=== PATIENT | male | born 1950 | race Caucasian/White ===

== ENCOUNTER 2017-10-20 05:18 | Inpatient (IN) | payer MEDICARE, OTHER ==
[~2017-10-20] VITALS: Ht 165.1 cm; Wt 71.7 kg
[2017-10-20] VITALS (43 sets, daily range): BP systolic 61–158; BP diastolic 35–92
--- NOTE | 2017-10-20 05:18 | NUR ---
To bed 3 a 67 yo male patient from [facility] c/o sob and low bp. Patient is lethargic upon arrival, with nonbreather in place by ems, kept hob elevated. patent airway maintained. placed on cardiac and vs monitoring. Dr Barakat at bedside to evaluate patient. Placed 2 large bore IV's gauges 18 on the lac and rac.
--- NOTE | 2017-10-20 05:20 | NUR ---
RT CALLED FOR INTUBATION
--- NOTE | 2017-10-20 05:27 | NUR ---
medicated patient with 30mg etomidate and 80mg rocuronium per Dr Barakat's verbal order prior to intubation. rt at bedside.
--- NOTE | 2017-10-20 05:28 | NUR ---
patient was intubated at this time by Dr Barakat. patient with ett size 8, 21 at [facility].
--- NOTE | 2017-10-20 05:29 | NUR ---
[facility]; ac, 16, tc 500, fio2 1005, peep 0. patient is satting at 100% at this time. maintained patent airway.
--- NOTE | 2017-10-20 05:30 | NUR ---
placed 16 f og tube on patient, lip at 65. gurgling sounds heard on the epigastric area upon instillation of air. xr at bedside to confirm placement.
--- NOTE | 2017-10-20 05:31 | NUR ---
xr at bedside.
[2017-10-20] MEDS ORDERED: LORAZEPAM INJ 2 MG/ML VIAL ONE (05:37)
[2017-10-20] MEDS ORDERED: ALBUTEROL FS 2.5 MG/3 ML VIAL.NEB ONE (05:40)
--- NOTE | 2017-10-20 05:44 | NUR ---
adjusted ett to [address] Barakat's verbal order. Rt Johnnie at bedside.
[2017-10-20 05:55] LABS: BASOPHILS % (AUTO) 0.1 % (0.0-2.0); EOSINOPHILS % (AUTO) 0.3 % (0.0-6.0); HEMATOCRIT 40 % (39-51); HEMOGLOBIN 13.3 g/dL (13.5-17.5); LYMPHOCYTES # (AUTO) 0.4 /CMM (0.8-4.8); LYMPHOCYTES % (AUTO) 25.9 % (20.0-44.0); MEAN CORPUSCULAR HEMOGLOBIN 31 PG (26.0-33.0); MEAN CORPUSCULAR HGB CONC 33 g/dl (31.0-36.0); MEAN CORPUSCULAR VOLUME 93 fL (80-96); MONOCYTES # (AUTO) 0.1 /CMM (0.1-1.30); MONOCYTES % (AUTO) 5.1 % (2.0-12.0); NEUTROPHILS % (AUTO) 68.6 % (43.0-81.0); PLATELET COUNT (AUTO) 118 /CMM (150-450); RDW COEFFICIENT OF VARIATION 13.8 (11.5-15.0); RED BLOOD CELL COUNT(AUTO) 4.34 MIL/uL (4.5-6.0)
[2017-10-20] MEDS ORDERED: PIPERACILLIN /TAZOBACTAM 3.375 G VIAL IV ONE (05:55)
[2017-10-20] MEDS ORDERED: DEXAMETHASONE SOD PHOSPHATE 10 MG/ML VIAL ONE (05:55)
[2017-10-20] MEDS ORDERED: VANCOMYCIN 1 GM VIAL ONE (05:55)
[2017-10-20] MEDS ORDERED: PIPERACILLIN /TAZOBACTAM 3.375 G in IV D5W 50 ML IV ONE (06:00)
[2017-10-20] MEDS ORDERED: IV NS 0.9% 1,000 ML BAG IV ONE (06:00)
[2017-10-20] MEDS ORDERED: ALBUTEROL FS 2.5 MG/3 ML VIAL.NEB CONTNEB ONE (06:00)
[2017-10-20] MEDS ORDERED: ETOMIDATE 2 MG/ML VIAL IV ONE ×2 (06:00→09:08)
[2017-10-20] MEDS ORDERED: DEXAMETHASONE SOD PHOSPHATE 10 MG/ML VIAL IV ONE (06:00)
[2017-10-20] MEDS ORDERED: VANCOMYCIN 1 GM in IV D5W 250 ML IV ONE (06:00)
[2017-10-20] MEDS ORDERED: IPRATROPIUM NEB FS 0.5 MG/2.5 ML AMPUL.NEB NEB ONE (06:00)
[2017-10-20] MEDS ORDERED: ROCURONIUM BROMIDE 100 MG/10 ML VIAL IV ONE (06:00)
[2017-10-20] MEDS ORDERED: LEVOFLOXACIN 750 MG /D5W 150ML 150 ML IV ONE ×2 (06:00→07:57)
--- NOTE | 2017-10-20 06:00 | NUR ---
selby cath 16f placed aseptically on patient, drained about 100cc yellow urine. urine collected and sent to lab. Addendum: 10/20/17 at 0724 by SHWETHA 14F
[2017-10-20 06:04] LABS: WHITE BLOOD COUNT (AUTO) 1.5 K/uL (4.3-11.0)
[2017-10-20 06:06] LABS: CALCIUM, SERUM 9.7 mg/dL (8.5-10.1); CARBON DIOXIDE 22 mmol/L (21-32); CHLORIDE 104 mmol/L (98-107); CREATININE 3.5 mg/dL (0.6-1.3); GLUCOSE 136 mg/dL (74-106); POTASSIUM 4.4 mmol/L (3.5-5.1); SODIUM SERUM 141 mmol/L (136-145); UREA NITROGEN, BLOOD 61 mg/dL (7-18)
[2017-10-20 06:10] LABS: TROPONIN I < 0.017 ng/mL (0.00-0.056)
--- NOTE | 2017-10-20 06:16 | NUR ---
RT REC PT WITH SOB. INTUBATED PT 8.0 ETT TUBE AT 21CM AT THE LIP CHEST XRAY DONE ADVANCED TUBE 22CM SECURED ETT PER DR VOGT. PLACED ON VENT SETTING AC 500 16 RR 100% O2 WITH CONTINUOS TX. SPUTUM OBTAINED AND SENT TO LAB Addendum: 10/20/17 at 0620 by ALY MARQUES RT Amended: Links added.
[2017-10-20 06:18] LABS: ALANINE AMINOTRANSFERASE 28 U/L (12-78); ALBUMIN 3.9 g/dL (3.4-5.0); ALKALINE PHOSPHATASE 55 U/L (46-116); ASPARTATE AMINOTRANSFERASE 43 U/L (15-37); B-TYPE NATRIURETIC PEPTIDE 2059 PG/ML (0-125); BILIRUBIN,DIRECT 0.4 mg/dL (0.0-0.2); BILIRUBIN,TOTAL 1.8 mg/dL (0.2-1.0); INR 1.03 (0.87-1.13); PROTHROMBIN TIME 10.7 SECS (9.5-12.7); TOTAL PROTEIN, SERUM 7.5 g/dL (6.4-8.2)
[2017-10-20] MEDS ORDERED: PROPOFOL 100 ML IV ONE (06:29)
[2017-10-20] MEDS ORDERED: LORAZEPAM INJ 2 MG/ML VIAL IV ONE (06:30)
[2017-10-20 06:33] LABS: LYMPHOCYTES % (MANUAL) 25 % (16-48); METAMYELOCYTES % 3 % (0-0); MONOCYTES % (MANUAL) 7 % (0-11.0); MYELOCYTES % 1 % (0-0); NEUTROPHILS % (MANUAL) 64 (42-76)
[2017-10-20 06:52] LABS: APPEARANCE,URINE CLOUDY (CLEAR); BILIRUBIN,URINE NEGATIVE (NEGATIVE); BLOOD, URINE NEGATIVE Ery/uL (NEGATIVE); COLOR,URINE YELLOW (YELLOW); KETONES,URINE NEGATIVE (NEGATIVE); LEUKOCYTE ESTERASE ,URINE 2+ (NEGATIVE); NITRITE, URINE NEGATIVE (NEGATIVE); PH,URINE 5.5 (5.0-8.0); PROTEIN,URINE NEGATIVE (NEGATIVE); UGLUCOSE NEGATIVE (NEGATIVE); UROBILINOGEN,URINE 0.2 EU/dL (0.2)
[2017-10-20 06:53] LABS: ABG BASE EXCESS -11.7 mmol/L; ABG PCO2 33.5 mmHg (35.0-45.0); ABG PH 7.251 (7.350-7.450); ABG PO2 320.6 mmHg (75.0-100.0); AaDO2 358.9 mmHg; COHb 0.1 % (0.5-1.5); MetHb 0.7 % (0.0-1.5); O2Hb 98.2 % (94.0-97.0); PEEP,BG 5 cm H2O; SITE, ABG Right Radial; VENT MODE, BG AC 16 600 100% +5; VT, ABG 600 mL
[2017-10-20] MEDS ORDERED: PROPOFOL 100 ML IV PRN (07:00)
[2017-10-20 07:13] LABS: BACTERIA,URINE Many /HPF (None Seen); RBC,URINE 0-2 /HPF (0-2); SQUAMOUS EPITHELIAL CELL,UR Few /HPF (None Seen)
--- NOTE | 2017-10-20 07:29 | NUR ---
PAGED EPIC, DR GODWIN IS UNIVERSAL BRANCH CONSULTANT
[2017-10-20] MEDS ORDERED: DOCU100C36 GT (07:45)
[2017-10-20] MEDS ORDERED: ATOR10TA GT (07:45)
[2017-10-20] MEDS ORDERED: ASCO500T9 GT (07:45)
[2017-10-20] MEDS ORDERED: FENO134C GT (07:45)
[2017-10-20] MEDS ORDERED: POTA20TA83 GT (07:45)
[2017-10-20] MEDS ORDERED: METO25TA6 GT (07:45)
[2017-10-20] MEDS ORDERED: FAMO20TA8 GT (07:45)
[2017-10-20] MEDS ORDERED: SENN-167 GT (07:45)
[2017-10-20] MEDS ORDERED: GABA-534 GT (07:45)
[2017-10-20] MEDS ORDERED: NUT.237L30 GT (07:45)
[2017-10-20] MEDS ORDERED: LACT1CAP61 PO (07:45)
[2017-10-20] MEDS ORDERED: ZINC220T GT (07:45)
--- NOTE | 2017-10-20 08:01 | NUR ---
SANJAY PAGED FOR ADMISSION - TATO -THROUGH THE EXCHANGE
--- NOTE | 2017-10-20 08:08 | NUR ---
accepted by dr. Viera
--- NOTE | 2017-10-20 08:08 | NUR ---
ICU bed assigned - 250 per Soraya Shepard RN Painter Mirror
--- NOTE | 2017-10-20 08:14 | NUR ---
report given to Emelyn SANCHEZ, continue plan of care
--- NOTE | 2017-10-20 08:50 | NUR ---
INSURANCE COLLECTOR: Pt received from ER via gurney, aroused only by deep pain, gag and cough reflex present. ETT 8 secured at 23cm lip line. Copious amounts of thick monson secretions suctioned orally and through ETT. Pt contracted on bilat upper and lower extremities. OGT and PEG positive placement, auscultated, revealed in CXR. Pt noted with SBP in 70's, Dr Viera paged for admitting orders.
[2017-10-20] MEDS ORDERED: NOREPINEPHRINE 8 MG in IV D5W 500 ML IV PRN ×2 (09:00→10:00)
[2017-10-20] MEDS ORDERED: ACETAMINOPHEN 325 MG TABLET PO PRN (09:00)
[2017-10-20] MEDS: DOCUSATE SODIUM 100 MG CAPSULE PO SCH (09:00)
[2017-10-20] MEDS ORDERED: ACETAMINOPHEN 650 MG/SUPP.RECT RC PRN (09:00)
[2017-10-20] MEDS ORDERED: ALBUTEROL FS 2.5 MG/3 ML VIAL.NEB NEB PRN (09:00)
[2017-10-20] MEDS: FAMOTIDINE (20 MG) 20 MG TABLET GT SCH (09:00)
[2017-10-20] MEDS ORDERED: NORMAL SALINE FLUSH 10 ML SYR IV PRN (09:00)
[2017-10-20] MEDS ORDERED: ONDANSETRON HCL/PF 4 MG/2 ML VIAL IVP PRN (09:00)
[2017-10-20] MEDS ORDERED: IV NS 0.9% 1,000 ML IV PRN (09:00)
[2017-10-20] MEDS ORDERED: ROCURONIUM BROMIDE 50 MG/5 ML IV ONE (09:08)
[2017-10-20] MEDS ORDERED: FEE EMEERGENCY 1 MIN EA MC ONE (09:08)
--- NOTE | 2017-10-20 10:00 | NUR ---
ICU/RN: Unable to instrument person to notify on chart, goes straight to voicemail. Left message with call back number. Emergency consent for PICC obtained from Dr Viera.
[2017-10-20] MEDS ORDERED: FEE PK DOSING 1 MIN EA MC ONE (10:08)
[2017-10-20] MEDS: IV NS 0.9% 1,000 ML IV PRN ×2 (10:46→20:42)
[2017-10-20] MEDS: PANTOPRAZOLE 40 MG VIAL IV SCH (11:38)
[2017-10-20] MEDS: PIPERACILLIN /TAZOBACTAM 2.25 G in IV D5W 50 ML IV SCH ×3 (11:39→23:18)
[2017-10-20] MEDS ORDERED: PIPERACILLIN /TAZOBACTAM 4.5 G in IV D5W 50 ML IV SCH (12:00)
[2017-10-20] MEDS ORDERED: VANCOMYCIN 1.25 GM in IV D5W 500 ML IV SCH (13:00)
[2017-10-20] MEDS ORDERED: NORMAL SALINE FLUSH 10 ML SYR IV SCH (13:00)
--- NOTE | 2017-10-20 13:10 | NUR ---
WOUND CARE CONSULT: PT NOT STABLE AT THIS TIME TO TURN FOR SKIN ASSESSMENT. PT ON FIRST STEP MATTRESS. RESPIRATORY THERAPIST WITH PT. ALL SKIN PROTECTION MEASURES IN PLACE AND DISCUSSED WITH NURSING STAFF. MD IN AGREEMENT WITH PLAN OF CARE.
[2017-10-20] MEDS: Z GUARD REMEDY 2 OZ OINT TP SCH (13:28)
[2017-10-20] MEDS: PROPOFOL 100 ML IV PRN ×2 (13:28→20:33)
--- NOTE | 2017-10-20 13:28 | NUR ---
ICU/RN: Pt noted to be gagging, biting and tachypneic. Started on Diprivan drip, will titrate per protocol. Dr Healy aware.
[2017-10-20] MEDS ORDERED: Z GUARD REMEDY 2 OZ OINT TP PRN (13:30)
[2017-10-20 14:21] LABS: ABG BASE EXCESS -11.8 mmol/L; ABG OXYGEN SATURATION 94.8 % (92.0-98.5); ABG PCO2 29.9 mmHg (35.0-45.0); ABG PH 7.276 (7.350-7.450); ABG PO2 79.9 mmHg (75.0-100.0); COHb 0.3 % (0.5-1.5); MetHb 0.6 % (0.0-1.5); O2Hb 93.9 % (94.0-97.0); PEEP,BG 5 cm H2O; SITE, ABG Right Radial; VENT MODE, BG AC 16 500 50% +5; VT, ABG 500 mL
--- NOTE | 2017-10-20 14:30 | NUR ---
ICU/RN: Case dw Dr Healy. Abn labs and CXR reviewed. Current POC is to r/o metastatic disease vs granulomatous disease. Cultures to be sent as ordered. Pt to be placed under respiratory isolation. tool repairer updated.
--- NOTE | 2017-10-20 15:00 | NUR ---
ICU/RN: Pt noted with moderate amount of soft green stool. Z-guard applied to affected area. Pt unable to tolerate turning for extended periods of time with SPO2 dropping to 80's; SBP also labile with turning.
--- NOTE | 2017-10-20 17:00 | NUR ---
ICU/RN: TALHA Hawk in for ID consult. POC dw CASE WORK AIDE. First sample sent to pathology for AFB, cytology testing. Current respiratory isolation precautions continued.
--- NOTE | 2017-10-20 17:10 | NUR ---
TECHNICAL SERVICES REP: F/u with central supply regarding DVT pump; per tech, no pumps available at this time. Will send one up as soon as it is available.
[2017-10-20 18:16] LABS: CREATININE, URINE 80.4 MG/DL (30.0-125.0)
--- NOTE | 2017-10-20 18:47 | NUR ---
ICU/RN: Pt transferred to [facility]; isolation precautions observed.
[2017-10-20] MEDS ORDERED: NOREPINEPHRINE 16 MG in IV D5W 500 ML IV PRN (20:00)
[2017-10-20] MEDS: GABAPENTIN 300 MG CAPSULE GT SCH (20:00)
[2017-10-20] MEDS: ATORVASTATIN 10 MG TABLET GT SCH (20:00)
[2017-10-20] MEDS ORDERED: FILGRASTIM (480 MCG) 480 MCG/1.6 ML VIAL ONE (21:33)
[2017-10-20] MEDS ORDERED: ASPIRIN 300 MG/SUPP.RECT RC ONE (21:59)
--- NOTE | 2017-10-20 22:16 | NUR ---
LATENT FINGERPRINT EXAMINER; NEW MEDICATION 'GRANIX" ORDERED BY DR REED, ONLINE COMMUNICATIONS MANAGER MADE AWARE , PER ONLINE COMMUNICATIONS MANAGER MEDICATION IS NOT AVAILABLE IN [place]. SPOKE WITH DR REED WANTS TO GIVE MEDICATION NOW, DOESN'T WANT WAIT UNTIL MORNING. ONLINE COMMUNICATIONS MANAGER MADE AWARE SAID' WILL CALL PHARMACY...... CHARGE NURSE AWARE
[2017-10-20] MEDS: TBO-FILGRASTIM 480 MCG/0.8 ML ML SQ SCH (22:56)
[2017-10-21] VITALS (79 sets, daily range): BP systolic 49–154; BP diastolic 25–71
[2017-10-21] MEDS ORDERED: PHENYLEPHRINE 10 MG/ML VIAL ONE (01:32)
--- NOTE | 2017-10-21 01:33 | NUR ---
CODER: PT HAVING EPISODES OF SINUS TACHY RATE OF 110-150 NON SUSTAINED THE GO BACK TO NORMAL IN FEW SECONDS, LORRAINE CAMPOS ACNP AT BEDSIDE, 12 LEAD EKG DONE SHOWS AFIB , BUT THEN GO BACK TO HEART RATE 90, BACK AND FORTH SINUS AND AFIB. PER ACNP NO TREATMENT FOR NOW UNLESS SUSTAINED AFIB, KEEP MONITORING. CHANGE TO SOAHIL-SYNEPHRIE FOR PRESSURE SUPPORT, LEVOPHED STOPPED DUE TO HEART RATE.
[2017-10-21] MEDS: PROPOFOL 100 ML IV PRN ×4 (01:38→22:14)
[2017-10-21] MEDS: PHENYLEPHRINE 80 MG in IV D5W 250 ML IV PRN ×4 (01:40→23:56)
--- NOTE | 2017-10-21 01:52 | NUR ---
ASSOCIATE MERCHANDISE PLANNER: RHYTHM CONVERTED TO AFIB WITH RATE OF 90-100, SOMETIMES GO BACK TO SINUS. LEVOPHED STOPPED. SOHAIL-SYNEPHRINE STARTED AT PER PROTOCOL. KEEP MONITORING....
--- NOTE | 2017-10-21 01:56 | NUR ---
REFINERY OPERATOR REFORMING UNIT: PT IS TACHYPNEIC, MOVING. RESTLESS, DIPRIVAN TITRATED UP TO 25 MCG/KG/MIN. KEEP MONITORING...
--- NOTE | 2017-10-21 02:51 | NUR ---
BRIEF WRITER; RHYTHM CONVERTED TO SINUS WITH PACs HEART RATE 80-90, KEEP MONITORING. SOHAIL-SYNEPHRINE TITRATING PE RBP READING.
[2017-10-21] MEDS: PIPERACILLIN /TAZOBACTAM 2.25 G in IV D5W 50 ML IV SCH ×3 (05:06→17:11)
[2017-10-21] MEDS ORDERED: VANCOMYCIN 500 MG in IV D5W 100 ML IV SCH (06:00)
[2017-10-21 06:23] LABS: BASOPHILS % (AUTO) 0.1 % (0.0-2.0); EOSINOPHILS % (AUTO) 0.4 % (0.0-6.0); HEMATOCRIT 35 % (39-51); HEMOGLOBIN 11.8 g/dL (13.5-17.5); LYMPHOCYTES # (AUTO) 0.3 /CMM (0.8-4.8); LYMPHOCYTES % (AUTO) 18.5 % (20.0-44.0); MEAN CORPUSCULAR HEMOGLOBIN 31 PG (26.0-33.0); MEAN CORPUSCULAR HGB CONC 34 g/dl (31.0-36.0); MEAN CORPUSCULAR VOLUME 92 fL (80-96); MONOCYTES % (AUTO) 1.5 % (2.0-12.0); NEUTROPHILS # (AUTO) 1.2 /CMM (1.8-8.9); NEUTROPHILS % (AUTO) 79.5 % (43.0-81.0); PLATELET COUNT (AUTO) 114 /CMM (150-450); RDW COEFFICIENT OF VARIATION 14.3 (11.5-15.0); RED BLOOD CELL COUNT(AUTO) 3.87 MIL/uL (4.5-6.0)
[2017-10-21 06:27] LABS: WHITE BLOOD COUNT (AUTO) 1.5 K/uL (4.3-11.0)
[2017-10-21 06:32] LABS: ALBUMIN 2.2 g/dL (3.4-5.0); BILIRUBIN,TOTAL 1.4 mg/dL (0.2-1.0); CALCIUM, SERUM 8.2 mg/dL (8.5-10.1); MAGNESIUM 1.8 mg/dL (1.8-2.4); PHOSPHORUS 2.4 mg/dL (2.5-4.9); POTASSIUM 4.5 mmol/L (3.5-5.1); TOTAL PROTEIN, SERUM 5.4 g/dL (6.4-8.2)
[2017-10-21 06:38] LABS: THYROID STIMULATING HORMONE 0.955 uIU/mL (0.358-3.74)
[2017-10-21 06:44] LABS: D-DIMER 1.75 mg/L(FEU (0.17-0.50); INR 1.52 (0.87-1.13); PROTHROMBIN TIME 15.9 SECS (9.5-12.7)
--- NOTE | 2017-10-21 07:00 | NUR ---
CLINICAL STUDY MANAGER- INITIAL NOTE RECEIVED PT IN BED, OBTUNDED. UNABLE TO FOLLOW COMMANDS, UNABLE TO MOVE EXTREMITIES, PT IS EXTREMELY CONTRACTED, PT IS ON ETT 8.0 AC 16 TV 500 FIO2 50% PEEP 0, RESPIRATIONS EVEN AND UNLABORED, NO SOB OR DISTRESS NOTED. PT IS ON BEDSIDE MONITOR SHOWING SR IN 70'S, NO S/S OF CHEST PAIN OR DISCOMFORT NOTED AT THIS TIME, PT HAS DONNA PICC LINE RUNNING NS @100ML/HR, SOHAIL@ 120MCG/MIN, DIPRIVAN @ 25MCG/MIN,C/D/I/PATENT, FLUSHING WELL, NO S/S OF INFECTION/ INFILTRATION NOTED AT THIS TIME, LAC #18G,SL, RAC #18G,SL, C/D/I/PATENT, FLUSHING WELL, PT HAS GTUBE, CLAMPED AT THIS TIME, PT IS CURRENTLY NPO, ALL SAFETY MEASURES IN PLACE AT ALL TIMES, CALL LIGHT WITHIN EASY REACH, ISOLATION PRECAUTIONS OBSERVED AT ALL TIMES, WILL CONTINUE TO MONITOR. Addendum: 10/21/17 at 1931 by GIULIA DUFFY RN ADDED: 23 @ SHANNON
--- NOTE | 2017-10-21 08:05 | NUR ---
ICU NOTE- DR. BECKER MADE ROUNDS, AWARE OF ALL LABS AND TEST RESULTS, NO NEW ORDERS AT THIS TIME
--- NOTE | 2017-10-21 08:20 | NUR ---
SEDATION VACATION- DIPRIVAN TITRATED PER PROTOCOL, PT UNABLE TO FOLLOW COMMANDS, UNABLE TO MOVE EXTREMITIES, ORAL CARE GIVEN, PT TURNED AND REPOSITIONED, WILL RESTART DIPRIVAN IF NEEDED FOR PT SAFETY
[2017-10-21] MEDS: FAMOTIDINE (20 MG) 20 MG TABLET GT SCH (08:22)
[2017-10-21] MEDS: DOCUSATE SODIUM 100 MG CAPSULE PO SCH (08:22)
--- NOTE | 2017-10-21 08:32 | NUR ---
RT PATIENT REC'D ORALLY INTUBATED ON [facility] VENT WITH SETTINGS SET BY . VENT ALARMS CHECKED + AUDIBLE. B/S COARSE. SUCTIONED WITH MOD AMT BROWN THIN SECRETIONS. AMBU BAG AT HOB Addendum: 10/21/17 at 1245 by CHARO MOORE RT Amended: Links added.
--- NOTE | 2017-10-21 08:40 | NUR ---
ICU NOTE- DIPRIVAN RESTART FOR PT SAFETY, PT HAS INCREASED RESPIRATIONS, BITING ON ETT.
--- NOTE | 2017-10-21 08:44 | NUR ---
ICU NOTE- AFB SAMPLE COLLECTED AND WILL SENT TO LAB
[2017-10-21] MEDS: Z GUARD REMEDY 2 OZ OINT TP SCH (09:04)
[2017-10-21] MEDS: PANTOPRAZOLE 40 MG VIAL IV SCH (09:04)
[2017-10-21] MEDS: IV NS 0.9% 1,000 ML IV PRN ×2 (09:05→22:16)
[2017-10-21 09:28] LABS: ABG BASE EXCESS -8.2 mmol/L; ABG OXYGEN SATURATION 92.4 % (92.0-98.5); ABG PCO2 28.7 mmHg (35.0-45.0); ABG PH 7.355 (7.350-7.450); AaDO2 333.2 mmHg; COHb 0.3 % (0.5-1.5); MetHb 0.4 % (0.0-1.5); O2Hb 91.8 % (94.0-97.0); SITE, ABG Left Radial
--- NOTE | 2017-10-21 10:45 | NUR ---
ICU NOTE- SON AT BEDSIDE, UPDATED ON PTS CONDITION, ALL QUESTIONS AND CONCERNS ANSWERED
--- NOTE | 2017-10-21 11:00 | NUR ---
ICU NOTE- LAB CALLED GRAM POSITIVE COCCI BLOOD CULTURES, ROSITA TIJERINA AWARE
--- NOTE | 2017-10-21 11:10 | NUR ---
PER DR ROSITA PérezF 5 ADDED Addendum: 10/21/17 at 1245 by CHARO MOORE RT Amended: Links added.
[2017-10-21 11:48] LABS: BAND % (MANUAL) 9 % (0.0-5.0); EOSINOPHILS % (MANUAL) 1 % (0-4); LYMPHOCYTES % (MANUAL) 19 % (16-48); METAMYELOCYTES % 2 % (0-0); MONOCYTES % (MANUAL) 7 % (0-11.0); NEUTROPHILS % (MANUAL) 66 (42-76)
--- NOTE | 2017-10-21 12:58 | NUR ---
icu note- 500ml ns bolus infusing now
[2017-10-21] MEDS ORDERED: IV NS 0.9% 500 ML IV ONE (13:00)
--- NOTE | 2017-10-21 13:50 | NUR ---
FIO2 INCREASED TO 70% FOR DESATURATION Addendum: 10/21/17 at 1548 by CHARO MOORE RT Amended: Links added.
[2017-10-21] MEDS ORDERED: SOD FERRIC GLUC 125 MG in IV NS 0.9% 100 ML IV SCH (14:00)
[2017-10-21] MEDS ORDERED: Sodium Phosphate 15 MMOL in IV D5W 250 ML IV ONE (15:00)
[2017-10-21] MEDS ORDERED: TUBERCULIN,PURIF.PROT.DERIV. 5 TU/0.1 ML VIAL ID ONE (17:00)
--- NOTE | 2017-10-21 17:33 | NUR ---
icu note- dr. hawthorne notified of pt's a fib w/rvr, no new orders at this time
--- NOTE | 2017-10-21 17:34 | NUR ---
icu note- ppd given on rfa, need to read on 10/24
--- NOTE | 2017-10-21 17:43 | NUR ---
icu note- dr. hawthorne called back, all new orders received.
--- NOTE | 2017-10-21 17:47 | NUR ---
icu note- 3rd afb collected and sent to lab
[2017-10-21] MEDS ORDERED: AMIODARONE 150 MG in IV D5W 100 ML IV ONE (18:00)
[2017-10-21] MEDS ORDERED: AMIODARONE 900 MG in IV D5W 482 ML IV PRN (18:00)
[2017-10-21] MEDS: VANCOMYCIN 500 MG in IV D5W 100 ML IV SCH (18:26)
--- NOTE | 2017-10-21 18:54 | NUR ---
ICU NOTE- PT CONVERTED BACK TO NSR
--- NOTE | 2017-10-21 19:45 | NUR ---
ICU/PEDIATRIC RN RECEIVED REPORT FROM DAY, PT IS ORALLY INTUBATED ON DEPRO @ 25MCG, PT CAN BECOME RESTLESS IF THERE IS NO SEDATION. PT IS CURRENTLY SR WAS EARLIER AFIB HOWEVER HAS CONVERTED. WILL MONITOR THIS. PT IS NPO. THERE IS MANY IV DRIPS SEE FLOW SHEET FOR EXACT ML/HR AND MCG/HR. PT WAS TURNED AND REPOSITION FOR COMFORT AND CARE.
--- NOTE | 2017-10-21 20:15 | NUR ---
PT RECEIVED INTUBATED WITH 8.0 ETT SECURED AT 22CM AT THE LIP. NO RESP DISTRESS. PT TOLERATING VENT SETTINGS. SX'D FOR SML AMT OF THICK PALE SECRETIONS. VENT ALARMS SET AND AUDIBLE. AMBU BAG AT BEDSIDE. VENT PLUGGED INTO RED OUTLET. WILL CONTINUE TO MONITOR. Addendum: 10/21/17 at 2018 by JOSE MANUEL HAHN RT Amended: Links added.
--- NOTE | 2017-10-21 20:20 | NUR ---
ICU/SEA CAPTAIN HEAD CHARGER CAME IN TO SEE PT, NEW ORDERS NOTED.
[2017-10-21] MEDS ORDERED: PHYTONADIONE 5 MG TABLET PO ONE (20:30)
[2017-10-21] MEDS ORDERED: PHYTONADIONE INJ 10 MG/1 ML AMPUL SQ ONE (21:00)
[2017-10-21] MEDS: ATORVASTATIN 10 MG TABLET GT SCH (21:54)
[2017-10-21] MEDS: GABAPENTIN 300 MG CAPSULE GT SCH (21:55)
[2017-10-21] MEDS: TBO-FILGRASTIM 480 MCG/0.8 ML ML SQ SCH (22:15)
--- NOTE | 2017-10-21 22:45 | NUR ---
ICU/[facility] LEONORA LACTIC ACID FOR THIS PT, ORDERED BY ASSISTANT BROKER
[2017-10-22] VITALS (110 sets, daily range): BP systolic 44–133; BP diastolic 24–75
[2017-10-22] MEDS: PIPERACILLIN /TAZOBACTAM 2.25 G in IV D5W 50 ML IV SCH ×3 (00:04→11:40)
--- NOTE | 2017-10-22 01:45 | NUR ---
ICU/[facility] VALUE CALLED FOR LACTIC ACID 3.59, CALLED MANAGER CONSUMER ABOUT THIS HOWEVER IT IS TRENDING DOWN
--- NOTE | 2017-10-22 02:00 | NUR ---
ICU/STOCK ASSOCIATE DUSTIN AREVALO WAS HERE TO SEE PT AND WROTE ORDERS ON THIS PT, SEE THAT DAY NURSE DID NOT NOTIFY CARDIOLOGY AT THIS TIME ABOUT THE CONVERT FROM AFIB TO SINUS CALLED ABOUT THIS. CALLED NOTIFY PRIMARY MD THAT THIS WAS NOT STATED DUE TO THE FACT THAT PT HAD CONVERTED AT 1800. PRIMARY PHOTO STUDIO ASSISTANT SAID OK DON'T START. AND TO MONITOR THIS PT.
--- NOTE | 2017-10-22 03:09 | NUR ---
ICU/QUARTER SECTION IRONER PT'S HEART RATE WAS ALL OVER FROM 80'S TO 150'S SR THEN DROPPING BEATS. IN ADDITION TO THIS PT'S SATURATION DECREASED TO 80'S. PT HD THE SAME TYPE OF EPISODE YESTERDAY NIGHT. PT WAS STARTED ON AMINO DRIP. WILL CONTINUE TO MONITOR THIS PT.
[2017-10-22] MEDS: PROPOFOL 100 ML IV PRN ×2 (04:54→08:51)
[2017-10-22 05:23] LABS: EOSINOPHILS % (AUTO) 0.2 % (0.0-6.0); HEMATOCRIT 33 % (39-51); HEMOGLOBIN 11.4 g/dL (13.5-17.5); LYMPHOCYTES # (AUTO) 0.3 /CMM (0.8-4.8); LYMPHOCYTES % (AUTO) 4.8 % (20.0-44.0); MEAN CORPUSCULAR HEMOGLOBIN 31 PG (26.0-33.0); MEAN CORPUSCULAR HGB CONC 35 g/dl (31.0-36.0); MEAN CORPUSCULAR VOLUME 91 fL (80-96); MONOCYTES % (AUTO) 0.2 % (2.0-12.0); NEUTROPHILS # (AUTO) 5.7 /CMM (1.8-8.9); NEUTROPHILS % (AUTO) 94.8 % (43.0-81.0); RDW COEFFICIENT OF VARIATION 14.5 (11.5-15.0); RED BLOOD CELL COUNT(AUTO) 3.64 MIL/uL (4.5-6.0)
[2017-10-22 05:38] LABS: PLATELET COUNT (AUTO) 103 /CMM (150-450)
[2017-10-22] MEDS ORDERED: PHENYLEPHRINE 10 MG/ML VIAL ONE (05:40)
[2017-10-22 05:48] LABS: CALCIUM, SERUM 8.1 mg/dL (8.5-10.1); CREATININE 1.5 mg/dL (0.6-1.3); PHOSPHORUS 2.6 mg/dL (2.5-4.9); POTASSIUM 3.9 mmol/L (3.5-5.1)
[2017-10-22 05:51] LABS: D-DIMER 1.99 mg/L(FEU (0.17-0.50); INR 1.19 (0.87-1.13); PROTHROMBIN TIME 12.4 SECS (9.5-12.7)
[2017-10-22] MEDS: PHENYLEPHRINE 80 MG in IV D5W 250 ML IV PRN ×3 (06:00→18:56)
[2017-10-22] MEDS: VANCOMYCIN 500 MG in IV D5W 100 ML IV SCH (06:01)
--- NOTE | 2017-10-22 07:30 | NUR ---
CHICKEN FANCIER RECEIVED PATIENT ON DIPRIVAN AT 25 MCGS AMIODARONE DRIP AT 1 MCG SUCTIONED SECRETION PRN, WHITISH TO LIGHT YELLOW THICK SECRETION MODERATE IN AMOUNT FEBRILE- COOLING MEASURES RENDERED WARM TO TOUCH CHECKED BOWL SOUND, CLAMPED G TUBE AND OGT WITH FIELDS CONNECTED TO UROBAG, DRAINING TO YELLOWISH URINE MODERATE IN AMOUNT
--- NOTE | 2017-10-22 08:00 | NUR ---
BRAND AMBASSADOR AMIODARONE DRIP D/C PER
[2017-10-22 08:09] LABS: QFT MITOGEN VALUE 0.08 IU/mL (.); QFT TB AG MINUS NIL VALUE 0.03 IU/mL (.); QFT TB AG VALUE 0.07 IU/mL (.); QFT TB GOLD Indeterminate (Negative)
[2017-10-22 08:16] LABS: BAND % (MANUAL) 11 % (0.0-5.0); LYMPHOCYTES % (MANUAL) 18 % (16-48); NEUTROPHILS % (MANUAL) 71 (42-76)
[2017-10-22] MEDS: PANTOPRAZOLE 40 MG VIAL IV SCH (08:47)
[2017-10-22] MEDS: FAMOTIDINE (20 MG) 20 MG TABLET GT SCH (08:53)
[2017-10-22] MEDS: Z GUARD REMEDY 2 OZ OINT TP SCH (08:53)
[2017-10-22] MEDS: DOCUSATE SODIUM 100 MG CAPSULE PO SCH (08:53)
[2017-10-22] MEDS ORDERED: FERROUS SULFATE UDC 300 MG/5 ML UDC PO SCH (09:00)
[2017-10-22 09:02] LABS: ABG BASE EXCESS -9.1 mmol/L; ABG OXYGEN SATURATION 95.1 % (92.0-98.5); ABG PH 7.389 (7.350-7.450); ABG PO2 73.8 mmHg (75.0-100.0); AaDO2 399.5 mmHg; COHb 0.3 % (0.5-1.5); MetHb 0.3 % (0.0-1.5); O2Hb 94.5 % (94.0-97.0); PEEP,BG 5 cm H2O; SITE, ABG Right Radial; VT, ABG 500 mL
--- NOTE | 2017-10-22 10:31 | NUR ---
fio2 increased to 80% for desaturation Addendum: 10/22/17 at 1032 by CHARO MOORE RT Amended: Links added.
[2017-10-22] MEDS ORDERED: FUROSEMIDE 40 MG/4 ML VIAL IV ONE (12:00)
--- NOTE | 2017-10-22 13:30 | NUR ---
PRE PRESS PROOFER SATURATION DROPS TO 80'S RR- 40'S HYPOTENSION NOTED AT SP 60'S INCREASED SOHAIL TO 250 MCGS PROPOFOL TO 50 MCGS
--- NOTE | 2017-10-22 13:38 | NUR ---
RAIL CAR REPAIRMAN DR. BECKER IS INFORMED AND GAVE NEW ORDERS MONITORED CLOSELY
[2017-10-22] MEDS ORDERED: PROPOFOL 100 ML IV PRN (16:00)
--- NOTE | 2017-10-22 17:47 | NUR ---
CASKET ASSEMBLER METAL SATURATION DROPS TO 70'S AT 100 fI02 NEOSYNEPHRINE ON MAX LEVOPHED WILL BE STARTED
--- NOTE | 2017-10-22 17:59 | NUR ---
CIVIL CAD TECH I TALKED TO THE PATIENT'S DAUGHTER, MARTINEZ, THE POWER OF SPECIAL SERVICES COORDINATOR SHE WANTS HER DAD TO RECEIVE COMFORT MEASURES I ALSO TALKED WITH THE REST OF THE FAMILY REGARDING THE DECISION ALREADY INFORMED MD REGARDING THE DECISION, AWAITING FOR ORDERS
[2017-10-22] MEDS ORDERED: PIPERACILLIN /TAZOBACTAM 4.5 G in IV D5W 50 ML IV SCH (18:00)
[2017-10-22] MEDS ORDERED: VANCOMYCIN 1 GM in IV D5W 250 ML IV SCH (18:00)
[2017-10-22] MEDS ORDERED: LORAZEPAM INJ 2 MG/ML VIAL IV PRN (19:00)
[2017-10-22] MEDS ORDERED: MORPHINE SULFATE PF DRIP 250 MG in IV D5W 240 ML IV PRN (19:00)
--- NOTE | 2017-10-22 19:18 | NUR ---
PHYSICAL FITNESS TRAINER ORDER FOR COMFORT MEASURES IS IN AWAITING ONE MORE FA,JANUARY MEMBER BEFORE STARTING COMFORT MEASURES BLOOD PRESSURE IS 60'S SBP ENDORSED TO NOD
[2017-10-22] MEDS: GABAPENTIN 300 MG CAPSULE GT SCH (20:12)
--- NOTE | 2017-10-22 20:26 | NUR ---
PT RECEIVED ORALLY INTUBATED WITH 8.0 ETT SECURED AT 22CM AT THE LIP. NO RESP DISTRESS. PT TOLERATING NOTED VENT SETTINGS. SX'D FOR SML AMT OF WHITE/YELLOW. VENT ALARMS SET AND AUDIBLE. AMBU BAG AT BEDSIDE. VENT PLUGGED INTO RED OUTLET. WILL CONTINUE TO MONITOR. Addendum: 10/22/17 at 2026 by SANTIAGO RIVERA RT Amended: Links added.
[2017-10-22] MEDS ORDERED: MORPHINE SULFATE 30 MG in IV NS 0.9% 28 ML, PCA TOTAL VOLUME 1 BAG IV PRN ×3 (21:00)
--- NOTE | 2017-10-22 21:02 | NUR ---
HOGSHEAD WEIGHER DF RECEIVED PT TO ROOM#255 PT WITH NEW ORDERS FOR COMFORT MEASURES WITH MORPHINE GTT WITH TERMINAL EXTUBATION ONCE MORPHINE GTT IS STARTED. MORPHINE GTT ORDERS ISSUED AT 1900. MULTIPLE CALLS TO PHARMACY AWAITING DELIVERY OF MEDICATION FROM PHARMACY. MULTIPLE FAMILY MEMBERS IN ROOM ALL IN AGREEMENT REGARDING COMFORT MEASURES. PT REMAINS ON NEOSYNEPHRINE GTT @ 300MCG, FAMILY REQUESTS TO CONTINUE SOHAIL GTT UNTIL MORPHINE GTT IS STARTED.
--- NOTE | 2017-10-22 21:39 | NUR ---
SHOP FOREMAN DF MORPHINE GTT STARTED @ 5MG/HR FOR COMFORT MEASURES. MEDICATION/PATIENT VERIFIED WITH BRUSH SANDER RENEE.POC TO STOP NEOSYNEPHRINE AND PROPOFOL GTTS WITH TERMINAL EXTUBATION.
--- NOTE | 2017-10-22 22:25 | NUR ---
BID MANAGER DF PT EXTUBATED PER COMFORT MEASURES ORDER.MORPHINE GTT RUNNING @5MG/HR. MULTIPLE FAMILY MEMBERS IN THE ROOM, EMOTIONAL SUPPORT PROVIDED.
--- NOTE | 2017-10-22 22:48 | NUR ---
ICU/RN-PRONOUNCEMENT OF PATIENT CODE STATUS"DO NOT RESUSCITATE". PATIENT IS UNRESPONSIVE TO ANY FORM OF STIMULI. PUPILS ARE FIXED AND DILATED. EKG X2 LEADS, ASYSTOLE. PERIPHERAL PULSES ARE ABSENT. APNEIC. RESPIRATIONS ARE ABSENT.NO SIGNS OF LIFE. PATIENT PRONOUNCED AT 2248.. BY:JUAN MAGAÑA
--- NOTE | 2017-10-22 22:52 | NUR ---
PT EXTUBATED, FOLLOWING COMFORT MEASURE PROTOCOL. Addendum: 10/22/17 at 6614 by SANTIAGO RIVERA RT Amended: Links added.
--- NOTE | 2017-10-22 23:29 | NUR ---
WEB PRESS JOGGER DF [employer] CALLED CASE NUMBER RECEIVED AND FILED ON PAPERWORK. POST MORTEM CARE COMPLETED ASSISTED BY SUPERVISOR PRINTING SHOP RENEE/MAIKEL ELLINGTON.
== END 2017-10-22 22:48 | disposition expired | DRG 871 ==
LOC: ER 05:22 → ICU 08:20
PROVIDERS: ADMIT Internal Medicine; ATTEND Internal Medicine
PROC: 5A1945Z Respiratory Ventilation, 24-96 Consecutive Hours (ICD-10-PCS; principal; 2017-10-20)
PROC: 02HV33Z Insertion of Infusion Device into Superior Vena Cava, Percutaneous Approach (ICD-10-PCS; 2017-10-20)
PROC: 0BH17EZ Insertion of Endotracheal Airway into Trachea, Via Natural or Artificial Opening (ICD-10-PCS; 2017-10-20)
DX: A41.9 Sepsis, unspecified organism (principal); E43 Unspecified severe protein-calorie malnutrition; J96.01 Acute respiratory failure with hypoxia; N17.0 Acute kidney failure with tubular necrosis; J69.0 Pneumonitis due to inhalation of food and vomit; G93.40 Encephalopathy, unspecified; R65.21 Severe sepsis with septic shock; R13.10 Dysphagia, unspecified; R53.2 Functional quadriplegia; E87.2 Acidosis; D61.818 Other pancytopenia; I13.0 Hypertensive heart and chronic kidney disease with heart failure and stage 1 through stage 4 chronic kidney disease, or unspecified chronic kidney disease; D68.9 Coagulation defect, unspecified; Z51.5 Encounter for palliative care; Z66 Do not resuscitate; I50.9 Heart failure, unspecified; F09 Unspecified mental disorder due to known physiological condition; Z93.1 Gastrostomy status; Z86.73 Personal history of transient ischemic attack (TIA), and cerebral infarction without residual deficits; D72.819 Decreased white blood cell count, unspecified; N18.9 Chronic kidney disease, unspecified; I25.10 Atherosclerotic heart disease of native coronary artery without angina pectoris; F03.90 Unspecified dementia, unspecified severity, without behavioral disturbance, psychotic disturbance, mood disturbance, and anxiety; E78.5 Hyperlipidemia, unspecified; K21.9 Gastro-esophageal reflux disease without esophagitis; I70.0 Atherosclerosis of aorta; Z79.899 Other long term (current) drug therapy; D71 Functional disorders of polymorphonuclear neutrophils
CPT/HCPCS: 31720; 36415; 36600; 71010-TC; 76700-TC; 80048-TC; 80053-TC; 80076-TC; 80202-TC; 81000-TC; 82570-TC; 82728-TC; 82746; 82803-TC; 82962-TC; 83540-TC; 83605-TC; 83735-TC; 83880; 84100-TC; 84300-TC; 84443-TC; 84484-TC; 85025-TC; 85396; 85730-TC; 86580-TC; 87040-TC; 87070-TC; 87081-TC; 87086-TC; 87116; 87186-TC; 87206; 87400; 87899; 88305-TC; 88312-TC; 93307-TC; 94002-TC; 94003-TC; 94640-TC; 94760-TC; A4216; A4606; A9563; C1751; C9113; J0282; J1100; J1442; J1447; J1940; J1956; J2060; J2270; J2370; J2543; J2916; J3370; J3430; J3490; J7030; J7040; J7050; J7060; Z7610